=== PATIENT | male | born 1970 | race Caucasian/White ===

== ENCOUNTER → 2016-08-01 | Outpatient (CLI) | payer OTHER ==
[~2016-08-01] MED LIST: ADVI200C9 PO; CLON2TAB PO; ENBR50IN2 SQ; ENBR50IN4 SC; IBUP-232 PO; KLON2TAB PO; LISI10TA PO; LOVA1TAB47 PO; LOVA40TA PO; METH2.5 PO; METH2.5T PO
[2016-08-01 13:54] LABS: AUTOMATED NEUTROPHIL # 6.9 TH/MM3 (1.8-7.7); BASOPHIL % 0.3 % (0.0-2.0); EOSINOPHIL % 0.5 % (0.0-4.0); HEMATOCRIT 42.1 % (39.0-51.0); HEMO FLAGS DIFF FINAL; LYMPH % 6.4 % (9.0-44.0); LYMPHOCYTE # 0.5 TH/MM3 (1.0-4.8); MEAN CELL VOLUME 96.9 FL (80.0-100.0); MEAN CORPUSCULAR HEMOGLOBIN 32.8 PG (27.0-34.0); MEAN CORPUSCULAR HGB CONC 33.8 % (32.0-36.0); MONO % 2.1 % (0.0-8.0); NEUT % 90.7 % (16.0-70.0); PLATELET COUNT 302 TH/MM3 (150-450); RED BLOOD COUNT 4.34 MIL/MM3 (4.50-5.90); RED CELL DISTRIBUTION WIDTH 13.1 % (11.6-17.2); WHITE BLOOD COUNT 7.6 TH/MM3 (4.0-11.0)
[2016-08-01 14:23] LABS: ALKALINE PHOSPHATASE 63 U/L (45-117); ALT (GPT) 55 U/L (12-78); ANION GAP 11 MEQ/L (5-15); AST (GOT) 26 U/L (15-37); BICARBONATE 26.1 MEQ/L (21.0-32.0); BLOOD UREA NITROGEN 19 MG/DL (7-18); CHLORIDE 102 MEQ/L (98-107); GLOMERULAR FILTRATION RATE 66 ML/MIN (>89); GLUCOSE,FASTING 191 MG/DL (74-99); POTASSIUM 3.8 MEQ/L (3.5-5.1); SODIUM (NA) 139 MEQ/L (136-145); TOTAL BILIRUBIN ADULT 0.3 MG/DL (0.2-1.0)
[2016-08-01 14:42] LABS: WESTERGREN SEDIMENTATION RATE 5 mm/hr (0-15)
== END ==
LOC: CLAB 13:28
PROVIDERS: ATTEND Allergy & Immunology
DX: L40.52 Psoriatic arthritis mutilans (principal); Z79.899 Other long term (current) drug therapy
CPT/HCPCS: 36415; 80053; 85025; 85652; 86140

== ENCOUNTER → 2016-09-13 | Outpatient (CLI) | payer OTHER ==
[~2016-09-13] VITALS: Ht 193 cm; Wt 98.4 kg
[~2016-09-13] MED LIST changes: +INSULIN HUMAN REGULAR 1,000 UNITS/10 ML VIAL SQ PRN; +LACTATED RINGER'S 1000 ML IV SCH; +METOPROLOL TARTRATE 25 MG TAB PO PRN; +PROPOFOL 200 MG/20 ML AMP IV ONE; +SODIUM CHLORID 0.9% 500 ML IV SCH
[2016-09-13 11:30] VITALS: BP 118/81; PULSE 89; RESP 16; TEMP 99.1; O2SAT 97
[2016-09-13 13:30] VITALS: TEMP 98.1
[2016-09-13 13:50] VITALS: BP 100/73; PULSE 61; RESP 16; O2SAT 100
--- NOTE | 2016-09-14 06:34 | MR ---
cc: BEN ESPARZA M.D., HARRY M.D. DATE: 09/13/2016 DATE OF : 1970 TYPE OF PROCEDURE Colonoscopy with polypectomies performed by Dr. Watson Garcia. The patient is an outpatient. INDICATION FOR PROCEDURE Family history of colon cancer in his brother. MEDICATIONS Sedation per anesthesiology. INSTRUMENT Pentax video colonoscope. PROCEDURE After obtaining written informed consent, the patient was placed in the left lateral decubitus position. Adequate sedation was administered. A digital rectal examination was performed. No gross lesions were noted. The colonoscope was placed in the anus and advanced slowly to the cecum. The appendiceal orifice and ileocecal valve appeared normal. In the cecal base a flat 6 mm polyp was removed with snare cautery technique. In the ascending colon a small, less than 5 mm, polyp was removed with cold snare polypectomy. A larger 12 mm polyp was removed with snare cautery and in the transverse colon a 5 mm polyp was removed with snare cautery. No diverticula were noted. Retroflexion of the instrument in the rectum revealed no abnormalities. The instrument was withdrawn and the procedure was terminated. The patient tolerated it well and there no apparent complications. Upon completion he was sedated and had normal stable vital signs. IMPRESSION 1. Colonoscopy to cecum. 2. Four polyps removed with snare cautery technique. DISPOSITION The patient is to be observed per routine post-procedure protocol. He may return home, resume his prior diet and medications. Will contact him next week with the histology report and determine timing for follow-up evaluation. Scope withdrawal time was 18 minutes. MD EBENEZER Kelly/MARY /1:31 PM /6:24 AM
== END ==
LOC: HEND 10:43
DX: Z12.11 Encounter for screening for malignant neoplasm of colon (principal); Z80.0 Family history of malignant neoplasm of digestive organs; C18.2 Malignant neoplasm of ascending colon; C18.4 Malignant neoplasm of transverse colon
CPT/HCPCS: 88305

== ENCOUNTER → 2016-10-03 | Outpatient (CLI) | payer OTHER ==
[~2016-10-03] MED LIST changes: -ADVI200C9 PO; -ENBR50IN2 SQ; -ENBR50IN4 SC; -INSULIN HUMAN REGULAR 1,000 UNITS/10 ML VIAL SQ PRN; -KLON2TAB PO; -LACTATED RINGER'S 1000 ML IV SCH; -LOVA1TAB47 PO; -METH2.5 PO; -METH2.5T PO; -METOPROLOL TARTRATE 25 MG TAB PO PRN; -PROPOFOL 200 MG/20 ML AMP IV ONE; -SODIUM CHLORID 0.9% 500 ML IV SCH
[2016-10-03 12:02] LABS: HEMATOCRIT 33.4 % (39.0-51.0); MEAN CELL VOLUME 94.3 FL (80.0-100.0); MEAN CORPUSCULAR HEMOGLOBIN 33.5 PG (27.0-34.0); MEAN CORPUSCULAR HGB CONC 35.6 % (32.0-36.0); PLATELET COUNT 295 TH/MM3 (150-450); RED BLOOD COUNT 3.55 MIL/MM3 (4.50-5.90); REVIEW FLAG FINAL; WHITE BLOOD COUNT 5.3 TH/MM3 (4.0-11.0)
== END ==
LOC: CLAB 11:34
PROVIDERS: ATTEND Family Medicine
DX: R53.83 Other fatigue (principal)
CPT/HCPCS: 36415; 82607; 82746; 84403; 84443; 85027

== ENCOUNTER → 2017-05-07 | Outpatient (CLI) | payer OTHER ==
[2017-05-07 09:57] LABS: AUTOMATED NEUTROPHIL # 4.6 TH/MM3 (1.8-7.7); BASOPHIL % 0.7 % (0.0-2.0); EOSINOPHIL # 0.1 TH/MM3 (0-0.4); EOSINOPHIL % 1.9 % (0.0-4.0); HEMATOCRIT 36.8 % (39.0-51.0); HEMO FLAGS DIFF FINAL; LYMPH % 22.4 % (9.0-44.0); LYMPHOCYTE # 1.5 TH/MM3 (1.0-4.8); MEAN CELL VOLUME 95.4 FL (80.0-100.0); MEAN CORPUSCULAR HEMOGLOBIN 32.4 PG (27.0-34.0); MONO % 5.9 % (0.0-8.0); NEUT % 69.1 % (16.0-70.0); PLATELET COUNT 381 TH/MM3 (150-450); RED BLOOD COUNT 3.86 MIL/MM3 (4.50-5.90); RED CELL DISTRIBUTION WIDTH 13.6 % (11.6-17.2); WHITE BLOOD COUNT 6.7 TH/MM3 (4.0-11.0)
== END ==
LOC: CLAB 09:23
PROVIDERS: ATTEND Family Medicine
DX: J18.9 Pneumonia, unspecified organism (principal)
CPT/HCPCS: 36415; 85025; 86157

== ENCOUNTER 2017-08-20 08:54 | Emergency (ER) | payer OTHER ==
[~2017-08-20] VITALS: Ht 193 cm; Wt 98.0 kg
[2017-08-20 09:06] VITALS: BP 99/67; PULSE 65; RESP 18; TEMP 98; O2SAT 99
[2017-08-20] MEDS ORDERED: ERYTOIN10 RIGHT EYE (09:32)
--- NOTE | 2017-08-20 09:35 | PD ---
HPI Chief Complaint: Eye Problems/Injury Time Seen by Provider: 09:06 Travel History International Travel<30 days: No Contact w/Intl Traveler<30days: No Traveled to known affect area: No History of Present Illness HPI This is a 46-year-old male here with right eye irritation and foreign body sensation since this morning. He reports he awoke in the middle of the night with a foreign body sensation in his right eye. He attempted to wash the unknown particle out which improved symptoms at the time. When he awoke this morning he continued to have a foreign body sensation with tearing and photosensitivity. Symptom severity is moderate. Aggravated by opening and closing the lid and light. Slightly improved with the closing the. PFSH Past Medical History Arthritis: Yes (SORIATIC) Blood Disorders: No Cancer: No Cardiovascular Problems: Yes (HTN) High Cholesterol: Yes Diabetes: No Endocrine: No GERD: Yes Genitourinary: No Hepatitis: No Hiatal Hernia: No Hypertension: Yes Immune Disorder: Yes (PSORIASIS) Implanted Vascular Access Dvce: Yes Kidney Stones: Yes (Left) Musculoskeletal: Yes (PSORIATIC ARTHITIS) Neurologic: No Psychiatric: No Reproductive: No Respiratory: No Immunizations Current: Yes Thyroid Disease: No Past Surgical History Abdominal Surgery: No AICD: No Cardiac Surgery: No Ear Surgery: No Endocrine Surgery: No Eye Surgery: No Genitourinary Surgery: No Joint Replacement: Yes Oral Surgery: No Pacemaker: No Thoracic Surgery: No Social History Alcohol Use: Yes (OCC) Tobacco Use: No Substance Use: No Allergies-Medications (Allergen,Severity, Reaction): Coded Allergies: *MDRO Multi-Drug Resistant Organism (Unverified Allergy, Unknown, 08/20/17) C-diff 10/2013 Reported Meds & Prescriptions Reported Meds & Active Scripts Active Erythromycin Opth Oint 5 Mg/Gm Oint 1 Applic RIGHT EYE QID Reported Lovastatin 40 Mg Tab 40 Mg PO DAILY Lisinopril-Hctz 10-12.5 Mg Tab 1 Tab PO DAILY Ibuprofen 600 Mg Tab 600 Mg PO DAILY PRN Clonazepam 2 Mg Tab 2 Mg PO HS Review of Systems Except as stated in HPI: all other systems reviewed are Neg Eyes: Positive: Photophobia, Foreign Body Sensation Physical Exam Narrative GENERAL: Alert and well-appearing 46-year-old male. SKIN: Warm and dry. HEAD: Normocephalic. EYES: Right eye mild injection. Pupils equal, round, reactive to light. EOMs intact. Corneas clear. Linear 2 mm abrasion located at 9:00 over the iris. Visual acuity L: 20/20, R 20/50 NECK: Supple, trachea midline. Data Data Last Documented VS Vital Signs Date Time Temp Pulse Resp B/P (MAP) Pulse Ox O2 Delivery O2 Flow Rate FiO2 08/20/17 09:06 98.0 65 18 99/67 (78) 99 Room Air MDM Medical Decision Making Medical Screen Exam Complete: Yes Emergency Medical Condition: Yes Differential Diagnosis Corneal abrasion, corneal foreign body, corneal ulcer, acute angle-closure glaucoma Narrative Course This is a 46-year-old male here with small corneal abrasion to the right eye this morning. Does not wear contact lenses. He is well-appearing. He has a small corneal abrasion to the right eye. No foreign body visualized. The eye was irrigated. Patient had symptom relief after proparacaine eye drops. He was instructed to follow up with ophthalmology tomorrow. He verbalizes understanding and agrees to plan Diagnosis Primary Impression: Corneal abrasion Qualified Codes: S05.01XA - Injury of conjunctiva and corneal abrasion without foreign body, right eye, initial encounter Referrals: Nalini Hernandez MDcomputer network engineer Departure Forms: Tests/Procedures, Work Release Enter return to work date: Aug 21, 2017 Additional Instructions: Antibiotic ointment into the right eye 4 times a day. Follow-up with ophthalmology. Return to emergency department if he developed new or worsening symptoms such as severe pain, decreased vision, flashes or floaters.. Scripts Erythromycin Opth Oint (Erythromycin Opth Oint) 5 Mg/Gm Oint 1 APPLIC RIGHT EYE QID for Infection, #1 TUBE 0 Refills Prov: Samira Regalado 08/20/17 Disposition: DISCHARGE HOME Condition: Stable Samira Regalado Aug 20, 2017 09:35
[2017-08-20] MEDS ORDERED: ERYTHROMYCIN 0.5% OPTH OINT 3.5 GM TUBO RIGHT EYE ONE (09:45)
== END 2017-08-20 10:30 | disposition home or self-care (01) ==
LOC: NEPK 08:54
DX: S05.01XA Injury of conjunctiva and corneal abrasion without foreign body, right eye, initial encounter (principal); I10 Essential (primary) hypertension; E78.00 Pure hypercholesterolemia, unspecified; K21.9 Gastro-esophageal reflux disease without esophagitis; L40.50 Arthropathic psoriasis, unspecified; Z87.442 Personal history of urinary calculi; Z79.899 Other long term (current) drug therapy
CPT/HCPCS: 99283

== ENCOUNTER 2017-12-31 10:08 | Emergency (ER) | payer OTHER ==
[~2017-12-31] VITALS: Ht 193 cm; Wt 85.0 kg
[~2017-12-31 10:08] MED LIST changes: +ERYTOIN10 RIGHT EYE; -IBUP-232 PO
[2017-12-31 10:09] VITALS: BP 103/64; PULSE 52; RESP 16; TEMP 97.6; O2SAT 98
[2017-12-31] MEDS ORDERED: CLON.5 PO (10:16)
[2017-12-31] MEDS ORDERED: LISI10TA PO (10:16)
[2017-12-31] MEDS ORDERED: LOVA10TA PO (10:16)
[2017-12-31] MEDS ORDERED: USTE1INJ IV (10:16)
[2017-12-31 10:30] VITALS: BP 103/64; PULSE 50; RESP 18; O2SAT 99
[2017-12-31 11:01] LABS: AUTOMATED NEUTROPHIL # 2.3 TH/MM3 (1.8-7.7); BASOPHIL # 0.1 TH/MM3 (0-0.2); BASOPHIL % 1.7 % (0.0-2.0); EOSINOPHIL # 0.4 TH/MM3 (0-0.4); EOSINOPHIL % 9.4 % (0.0-4.0); HEMATOCRIT 39.2 % (39.0-51.0); HEMOGLOBIN 13.6 GM/DL (13.0-17.0); LYMPH % 25.7 % (9.0-44.0); LYMPHOCYTE # 1.1 TH/MM3 (1.0-4.8); MEAN CELL VOLUME 98.3 FL (80.0-100.0); MEAN CORPUSCULAR HGB CONC 34.6 % (32.0-36.0); MEAN PLATELET VOLUME 7.8 FL (7.0-11.0); MONO % 8.3 % (0.0-8.0); MONOCYTE # 0.3 TH/MM3 (0-0.9); NEUT % 54.9 % (16.0-70.0); PLATELET COUNT 301 TH/MM3 (150-450); RED BLOOD COUNT 3.99 MIL/MM3 (4.50-5.90); RED CELL DISTRIBUTION WIDTH 13.4 % (11.6-17.2); WHITE BLOOD COUNT 4.2 TH/MM3 (4.0-11.0)
[2017-12-31] MEDS ORDERED: SODIUM CHLOR 0.9% 1000 ML INJ 1,000 ML IV ONE ×2 (11:11→14:15)
[2017-12-31 11:14] VITALS: O2SAT 99
[2017-12-31] MEDS ORDERED: SODIUM CHLORIDE 0.9% FLUSH 10 ML FLUSH IVF PRN (11:15)
[2017-12-31 11:21] LABS: ALKALINE PHOSPHATASE 83 U/L (45-117); TOTAL BILIRUBIN ADULT 0.5 MG/DL (0.2-1.0); TOTAL PROTEIN 7.2 GM/DL (6.4-8.2)
[2017-12-31 11:28] LABS: ALBUMIN 3.7 GM/DL (3.4-5.0); ALT (GPT) 36 U/L (12-78); AST (GOT) 41 U/L (15-37); BICARBONATE 26.3 MEQ/L (21.0-32.0); BLOOD UREA NITROGEN 18 MG/DL (7-18); CALCIUM 8.7 MG/DL (8.5-10.1); CHLORIDE 103 MEQ/L (98-107); CREATININE 1.05 MG/DL (0.60-1.30); GLOMERULAR FILTRATION RATE 76 ML/MIN (>89); GLUCOSE,RANDOM 118 MG/DL (74-106); SODIUM (NA) 138 MEQ/L (136-145)
[2017-12-31 11:30] VITALS: BP 97/56; PULSE 60; RESP 18; O2SAT 99
--- NOTE | 2017-12-31 11:55 | PD ---
HPI Chief Complaint: Dizziness Time Seen by Provider: 10:54 Travel History International Travel<30 days: No Contact w/Intl Traveler<30days: No Traveled to known affect area: No History of Present Illness HPI 47-year-old male with PMH of HTN and psoriatic arthritis presents the ED for evaluation of weakness and dizziness. Onset this morning around 8 AM. Endorses feeling as if he might pass out. He denies headache, vision changes, chest pain, palpitations, cough, shortness of breath, abdominal pain, nausea, vomiting, changes in bowel habits, dysuria, hematuria, weakness of the extremities. States that his PCP halved his blood pressure medication dosage approximately 6 weeks ago. He states that his blood pressure has remained around 100 systolic despite this decrease in the meds. He drank a soda this morning, has not had anything to eat. He states prior to this he was feeling a little tired but attributed that to his psoriatic arthritis. He is a non- smoker. Endorses social alcohol use. He is followed by Dr. Андрей Branch, PCP. PFSH Past Medical History Arthritis: Yes (SORIATIC) Blood Disorders: No Cancer: No Cardiovascular Problems: Yes (HTN) High Cholesterol: Yes Diabetes: No Diminished Hearing: No Endocrine: No GERD: Yes Genitourinary: No Hepatitis: No Hiatal Hernia: No Hypertension: Yes Immune Disorder: Yes (PSORIASIS) Implanted Vascular Access Dvce: Yes Kidney Stones: Yes (Left) Musculoskeletal: Yes (PSORIATIC ARTHITIS) Neurologic: No Psychiatric: No Reproductive: No Respiratory: No Immunizations Current: Yes Thyroid Disease: No Tetanus Vaccination: < 5 Years Influenza Vaccination: Yes Past Surgical History Abdominal Surgery: No AICD: No Cardiac Surgery: No Ear Surgery: No Endocrine Surgery: No Eye Surgery: No Genitourinary Surgery: No Joint Replacement: Yes Oral Surgery: No Pacemaker: No Thoracic Surgery: No Other Surgery: Yes Social History Alcohol Use: Yes (OCC) Tobacco Use: No Substance Use: No Allergies-Medications (Allergen,Severity, Reaction): Coded Allergies: *MDRO Multi-Drug Resistant Organism (Unverified Allergy, Unknown, 08/20/17) C-diff 10/2013 Reported Meds & Prescriptions Reported Meds & Active Scripts Active Reported Klonopin (Clonazepam) 0.5 Mg Tab 0.5 Mg PO BID Stelara Inj (Ustekinumab Inj) 130 Mg/26 Ml Inj 260 Mg IV ONCE Must be diluted in 250 ml NS prior to administration Lovastatin 10 Mg Tab 10 Mg PO DAILY Lisinopril-Hctz 10-12.5 Mg Tab 1 Tab PO DAILY Review of Systems Except as stated in HPI: all other systems reviewed are Neg Physical Exam Narrative GENERAL: Alert, oriented, well-nourished, pleasant white male in no acute distress. SKIN: Focused skin assessment warm/dry. Psoriatic skin changes diffusely. HEAD: Atraumatic. Normocephalic. EYES: Pupils equal and round. No scleral icterus. No injection or drainage. ENT: Pearly tobar tympanic membranes bilaterally. No nasal bleeding or discharge. Mucous membranes pink and moist. NECK: Trachea midline. No JVD. CARDIOVASCULAR: Regular rate and rhythm. No murmur appreciated. RESPIRATORY: No accessory muscle use. Clear to auscultation. Breath sounds clear and equal bilaterally. GASTROINTESTINAL: Abdomen soft, non-tender, nondistended. Hepatic and splenic margins not palpable. Active bowel sounds. MUSCULOSKELETAL: No obvious deformities. No clubbing. No cyanosis. No edema. Moves extremities spontaneously. NEUROLOGICAL: Awake and alert. No obvious cranial nerve deficits. Motor grossly within normal limits. 5/5 strength in bilateral upper and lower extremities. Normal speech. PSYCHIATRIC: Appropriate mood and affect; insight and judgment normal. Data Data Last Documented VS Vital Signs Date Time Temp Pulse Resp B/P (MAP) Pulse Ox O2 Delivery O2 Flow Rate FiO2 12/31/17 16:18 12/31/17 14:30 50 18 99 Room Air 12/31/17 10:09 97.6 Orders Orders Complete Blood Count With Diff (12/31/17 10:37) Comprehensive Metabolic Panel (12/31/17 10:37) Iv Access Insert/Monitor (12/31/17 10:37) Electrocardiogram (12/31/17 11:11) Ckmb (Isoenzyme) Profile (12/31/17 11:11) Troponin I (12/31/17 11:11) Act Partial Throm Time (Ptt) (12/31/17 11:11) Prothrombin Time / Inr (Pt) (12/31/17 11:11) Urinalysis - C+S If Indicated (12/31/17 11:11) Chest, Single Ap (12/31/17 11:11) Ct Brain W/O Iv Contrast(Rout) (12/31/17 11:11) Ecg Monitoring (12/31/17 11:11) Oximetry (12/31/17 11:11) Sodium Chloride 0.9% Flush (Ns Flush) (12/31/17 11:15) Sodium Chlor 0.9% 1000 Ml Inj (Ns 1000 M (12/31/17 11:11) Blood Glucose (12/31/17 11:13) CKMB (12/31/17 10:40) CKMB% (12/31/17 10:40) Orthostatic Blood Pressure (12/31/17 13:53) Sodium Chlor 0.9% 1000 Ml Inj (Ns 1000 M (12/31/17 13:53) Sodium Chloride 0.9% Flush (Ns Flush) (12/31/17 14:00) Sodium Chloride 0.9% Flush (Ns Flush) (12/31/17 21:00) Acetaminophen (Tylenol) (12/31/17 14:00) Ondansetron Inj (Zofran Inj) (12/31/17 14:00) Resp Oxygen Brent C Titrat 1-4 L (12/31/17 ) Acetaminophen (Tylenol) (12/31/17 14:00) Naloxone Inj (Narcan Inj) (12/31/17 14:00) Docusate Sodium-Senna (Violette-Colace) (12/31/17 21:00) Magnesium Hydroxide Liq (Milk Of Magnesi (12/31/17 14:00) Sennosides (Senokot) (12/31/17 14:00) Bisacodyl Supp (Dulcolax Supp) (12/31/17 14:00) Lactulose Liq (Lactulose Liq) (12/31/17 14:00) Clonazepam (Klonopin) (12/31/17 14:00) Sodium Chlor 0.9% 1000 Ml Inj (Ns 1000 M (12/31/17 14:15) Orthostatic Blood Pressure (12/31/17 14:32) Ed Discharge Order (12/31/17 15:28) Labs Laboratory Tests Test 12/31/17 10:40 12/31/17 11:00 12/31/17 11:38 White Blood Count 4.2 TH/MM3 Red Blood Count 3.99 MIL/MM3 Hemoglobin 13.6 GM/DL Hematocrit 39.2 % Mean Corpuscular Volume 98.3 FL Mean Corpuscular Hemoglobin 34.0 PG Mean Corpuscular Hemoglobin Concent 34.6 % Red Cell Distribution Width 13.4 % Platelet Count 301 TH/MM3 Mean Platelet Volume 7.8 FL Neutrophils (%) (Auto) 54.9 % Lymphocytes (%) (Auto) 25.7 % Monocytes (%) (Auto) 8.3 % Eosinophils (%) (Auto) 9.4 % Basophils (%) (Auto) 1.7 % Neutrophils # (Auto) 2.3 TH/MM3 Lymphocytes # (Auto) 1.1 TH/MM3 Monocytes # (Auto) 0.3 TH/MM3 Eosinophils # (Auto) 0.4 TH/MM3 Basophils # (Auto) 0.1 TH/MM3 CBC Comment DIFF FINAL Differential Comment Blood Urea Nitrogen 18 MG/DL Creatinine 1.05 MG/DL Random Glucose 118 MG/DL Total Protein 7.2 GM/DL Albumin 3.7 GM/DL Calcium Level 8.7 MG/DL Alkaline Phosphatase 83 U/L Aspartate Amino Transf (AST/SGOT) 41 U/L Alanine Aminotransferase (ALT/SGPT) 36 U/L Total Bilirubin 0.5 MG/DL Sodium Level 138 MEQ/L Potassium Level 3.7 MEQ/L Chloride Level 103 MEQ/L Carbon Dioxide Level 26.3 MEQ/L Anion Gap 9 MEQ/L Estimat Glomerular Filtration Rate 76 ML/MIN Total Creatine Kinase 239 U/L Creatine Kinase MB 3.3 NG/ML Troponin I LESS THAN 0.02 NG/ML Prothrombin Time 11.4 SEC Prothromb Time International Ratio 1.1 RATIO Activated Partial Thromboplast Time 22.0 SEC Urine Color YELLOW Urine Turbidity CLEAR Urine pH 5.5 Urine Specific Vass 1.023 Urine Protein NEG mg/dL Urine Glucose (UA) NEG mg/dL Urine Ketones NEG mg/dL Urine Occult Blood NEG Urine Nitrite NEG Urine Bilirubin NEG Urine Urobilinogen LESS THAN 2.0 MG/DL Urine Leukocyte Esterase NEG Urine RBC LESS THAN 1 /hpf Urine WBC 1 /hpf Urine Hyaline Casts 6 /lpf Urine Mucus FEW /lpf Microscopic Urinalysis Comment CULT NOT INDICATED MDM Medical Decision Making Medical Screen Exam Complete: Yes Emergency Medical Condition: Yes Differential Diagnosis Hypotension versus hypoglycemia versus dysrhythmia versus metabolic derangement versus TIA versus other Narrative Course 47-year-old male with PMH of HTN and psoriatic arthritis presents the ED for evaluation of near syncope. Onset this morning around 8 AM. States that his PCP halved his blood pressure medication dosage approximately 6 weeks ago. He states that his blood pressure has remained around 100 systolic despite this decrease in the meds. He drank a soda this morning, has not had anything to eat. He is followed by Dr. Андрей Branch, PCP. Pulse 50, BP 103/64 on presentation. On exam this is a pleasant white male in no acute distress. No focal neuro deficits noted. IV was established. Patient was administered 1 L normal saline. CBC: WBC 4.2. Hemoglobin 13.6. INR: 1.1. CMP: BUN 18, creatinine 1.05. Glucose 118. Cardiac enzymes negative 1. UA: No culture indicated. CXR: No acute cardiopulmonary disease. CT brain: Negative noncontrast head CT per radiology read. I spoke with Dr. Coleman, he recommends contacting the primary care since this is an ongoing problem. I spoke with Dr. Downs, on-call for Dr. Branch. If the patient is asymptomatic after 2 liters of fluid, he feels that the patient can be discharged while withholding BP meds. He can see the patient in the office in 2 days. Discussed this plan with the patient. He is agreeable. After second liter fluid the patient was able to walk around the ED with no dizziness. BP improved to 111/64. Patient's instructed to discontinue his blood pressure medication, call Dr. Branch office for follow-up this week, keep a log of his blood pressures, return for worsening symptoms. He indicated understanding of the discharge instructions. He is stable and discharged home. Diagnosis Primary Impression: Hypotension Qualified Codes: I95.9 - Hypotension, unspecified Referrals: Андрей Branch MD Additional Instructions: Rest, hydrate. Stop taking your blood pressure medication. Monitor your BP and record it during various times of the day to present to your provider later this week. Call Dr. Branch office today for a follow-up appointment this week as discussed. Return to the ED for worsening symptoms or any urgent or emergent medical condition. Disposition: 01 DISCHARGE HOME Condition: Stable Alis Nugent Dec 31, 2017 11:55
[2017-12-31 11:58] LABS: INTERNATIONAL NORMALIZED RATIO 1.1 RATIO; PROTHROMBIN TIME - PATIENT 11.4 SEC (9.8-11.6)
--- NOTE | 2017-12-31 12:04 | RADRPT ---
EXAM DATE: 12/31/2017 11:52 AM EDT AGE/SEX: 47 years / Male INDICATIONS: Weak, tired CLINICAL DATA: This is the patient's initial encounter. Patient reports that signs and symptoms have been present for 2 weeks and indicates a pain score of 0/10. MEDICAL/SURGICAL HISTORY: . high blood pressure. None. COMPARISON: [facility], XR CHEST PA AND LAT, 05/04/2017. . FINDINGS: The lungs are clear without infiltrate, nodule, or mass. There is no appreciable pleural effusion for technique. Heart and mediastinum are unremarkable. CONCLUSION: No acute cardiopulmonary disease. Electronically signed by: Geovanna Menendez MD 12/31/2017 12:02 PM EDT
[2017-12-31 12:05] LABS: BILIRUBIN, URINE NEG (NEG); BLOOD, URINE NEG (NEG); GLUCOSE,URINE NEG (NEG); HYALINE CAST, URINE 6 /lpf (RARE); KETONE, URINE NEG (NEG); MUCUS URINE FEW /lpf (OCC); NITRITE,URINE NEG (NEG); PH, URINE 5.5 (5.0-8.5); URINE COLOR YELLOW (YELLW/STRAW); URINE LEUKOCYTE ESTERASE NEG (NEG)
--- NOTE | 2017-12-31 12:11 | RADRPT ---
EXAM DATE: 12/31/2017 12:05 PM EDT AGE/SEX: 47 years / Male INDICATIONS: Dizziness,hypotension,blurred vision CLINICAL DATA: This is the patient's initial encounter. Patient reports that signs and symptoms have been present for 1 day and indicates a pain score of 0/10. MEDICAL/SURGICAL HISTORY: Hypertension. Arthritis. None. RADIATION DOSE: 56.35 CTDI (mGy) COMPARISON: No prior exams available for comparison. TECHNIQUE: CT of the head without contrast. Using automated exposure control and adjustment of the mA and/or kV according to patient size, radiation dose was kept as low as reasonably achievable to ob tain optimal diagnostic quality images. FINDINGS: Cerebrum: The ventricles are normal for age. No evidence of midline shift, mass lesion, hemorrhage or acute infarction. No extraaxial fluid collections are seen. Posterior Fossa: The cerebellum and brainstem are intact. The 4th ventricle is midline. The cerebe llopontine angle is unremarkable. Extracranial: The visualized portion of the orbits is intact. Skull: The calvaria is intact. No evidence of skull fracture. CONCLUSION: 1. Negative CT Head non contrast. Electronically signed by: Isaiah Hernandez MD 12/31/2017 12:10 PM EDT
[2017-12-31 12:15] LABS: TROPONIN I LESS THAN 0.02 NG/ML (0.02-0.05)
[2017-12-31 12:20] VITALS: BP 99/58; PULSE 54; RESP 18; O2SAT 99
[2017-12-31] MEDS ORDERED: SODIUM CHLOR 0.9% 1000 ML INJ 1,000 ML IV SCH (13:53)
[2017-12-31] MEDS ORDERED: BISACODYL 10 MG SUPP RECTAL PRN (14:00)
[2017-12-31] MEDS ORDERED: ACETAMINOPHEN 325 MG TAB PO PRN ×2 (14:00)
[2017-12-31] MEDS ORDERED: ONDANSETRON HCL 4 MG/2 ML VIAL IVP PRN (14:00)
[2017-12-31] MEDS ORDERED: LACTULOSE SYRUP 20 GM/30 ML CUP PO PRN (14:00)
[2017-12-31] MEDS ORDERED: clonazePAM 0.5 MG TAB PO PRN (14:00)
[2017-12-31] MEDS ORDERED: SODIUM CHLORIDE 0.9% FLUSH 10 ML FLUSH IV FLUSH PRN (14:00)
[2017-12-31] MEDS ORDERED: NALOXONE HCL 0.4 MG/ML AMP IV PUSH PRN (14:00)
[2017-12-31] MEDS ORDERED: SENNOSIDES 8.6 MG TAB PO PRN (14:00)
[2017-12-31] MEDS ORDERED: MAGNESIUM HYDROXIDE SUSP 30 ML CUP PO PRN (14:00)
[2017-12-31 14:30] VITALS: BP 111/64; PULSE 50; RESP 18; O2SAT 99
--- NOTE | 2017-12-31 15:00 | EKG ---
Date Performed: 12/31/2017 Time Performed: 09:11:05 PTAGE: 47 years EKG: SINUS BRADYCARDIA MODERATE INTRAVENTRICULAR CONDUCTION DELAY MINIMAL VOLTAGE CRITERIA FOR L VH, CONSIDER NORMAL VARIANT MODERATE ST DEPRESSION ABNORMAL ECG Since the PREVIOUS TRACING , no significant change noted PREVIOUS TRACIN04/01/2009 @11.04 DOCTOR: Osvaldo Chowdhury Interpretating Date/Time 12/31/2017 14:55:30
[2017-12-31] MEDS ORDERED: DOCUSATE SODIUM 50 MG/SENNA 8.6 MG TAB PO SCH (21:00)
[2017-12-31] MEDS ORDERED: SODIUM CHLORIDE 0.9% FLUSH 10 ML FLUSH IV FLUSH SCH (21:00)
== END 2017-12-31 16:35 | disposition home or self-care (01) ==
LOC: NEPE 10:08
DX: I95.9 Hypotension, unspecified (principal); E78.00 Pure hypercholesterolemia, unspecified; I10 Essential (primary) hypertension; L40.50 Arthropathic psoriasis, unspecified; R94.31 Abnormal electrocardiogram [ECG] [EKG]; Z79.899 Other long term (current) drug therapy
CPT/HCPCS: 70450; 71045; 80053; 81001; 82550; 82552; 84484; 85025; 85610; 85730; 93005; 96360; 96361; 99285; J7030

== ENCOUNTER → 2018-01-09 | Outpatient (CLI) | payer OTHER ==
[~2018-01-09] MED LIST changes: +CLON.5 PO; -CLON2TAB PO; -ERYTOIN10 RIGHT EYE; +LOVA10TA PO; -LOVA40TA PO; +USTE1INJ IV
[2018-01-09 11:25] LABS: AUTOMATED NEUTROPHIL # 2.2 TH/MM3 (1.8-7.7); BASOPHIL % 0.9 % (0.0-2.0); EOSINOPHIL # 0.5 TH/MM3 (0-0.4); EOSINOPHIL % 11.7 % (0.0-4.0); HEMATOCRIT 38.6 % (39.0-51.0); HEMOGLOBIN 13.3 GM/DL (13.0-17.0); LYMPH % 24.7 % (9.0-44.0); MEAN CELL VOLUME 98.4 FL (80.0-100.0); MEAN CORPUSCULAR HEMOGLOBIN 33.8 PG (27.0-34.0); MEAN CORPUSCULAR HGB CONC 34.4 % (32.0-36.0); MEAN PLATELET VOLUME 7.2 FL (7.0-11.0); MONO % 9.3 % (0.0-8.0); MONOCYTE # 0.4 TH/MM3 (0-0.9); NEUT % 53.4 % (16.0-70.0); PLATELET COUNT 292 TH/MM3 (150-450); RED BLOOD COUNT 3.92 MIL/MM3 (4.50-5.90); RED CELL DISTRIBUTION WIDTH 13.3 % (11.6-17.2); WHITE BLOOD COUNT 4.2 TH/MM3 (4.0-11.0)
[2018-01-09 11:54] LABS: WESTERGREN SEDIMENTATION RATE 15 mm/hr (0-15)
[2018-01-09 11:55] LABS: ALBUMIN 3.8 GM/DL (3.4-5.0); ALT (GPT) 34 U/L (12-78); AST (GOT) 33 U/L (15-37); BICARBONATE 28.2 MEQ/L (21.0-32.0); BLOOD UREA NITROGEN 13 MG/DL (7-18); C-REACTIVE PROTEIN LESS THAN 0.29 MG/DL (0.00-0.30); CHLORIDE 103 MEQ/L (98-107); CREATININE 1.07 MG/DL (0.60-1.30); GLOMERULAR FILTRATION RATE 75 ML/MIN (>89); GLUCOSE,FASTING 92 MG/DL (74-99); SODIUM (NA) 141 MEQ/L (136-145)
[2018-01-09 11:57] LABS: ALKALINE PHOSPHATASE 85 U/L (45-117); CHOLESTEROL/ HDL RATIO 3.07 RATIO; HDL CHOLESTEROL 61.1 MG/DL (40.0-60.0); TOTAL BILIRUBIN ADULT 0.3 MG/DL (0.2-1.0); TOTAL PROTEIN 7.1 GM/DL (6.4-8.2)
== END ==
LOC: CLAB 10:57
PROVIDERS: ATTEND Family Medicine
DX: L40.50 Arthropathic psoriasis, unspecified (principal); M10.9 Gout, unspecified; E78.2 Mixed hyperlipidemia
CPT/HCPCS: 36415; 80053; 80061; 82955; 84550; 85025; 85652; 86140